=== PATIENT | male | born 1955 | race Hispanic/Latino ===

== ENCOUNTER 2017-07-27 12:19 | Emergency (ER) | payer OTHER ==
[2017-07-27] MEDS ORDERED: ACYCLOVIR800 MG PO (13:12)
[2017-07-27] MEDS ORDERED: GABAPENTIN100 MG PO (13:12)
== END 2017-07-27 13:15 | disposition home or self-care (01) ==
LOC: FSED 12:19
DX: B02.9 Zoster without complications (principal)
CPT/HCPCS: 93005; 99282